=== PATIENT | male | born 1970 | race Two or more races ===

== ENCOUNTER 2025-03-20 05:20 | Day surgery (SDC) | payer OTHER ==
[2025-03-14 10:28] VITALS: BP 144/84
[2025-03-14 10:49] LABS: BASO % 1.5 % (0.1-1.2); EOS # 0.27 (0.04-0.54); EOS % 5.2 % (0.7-7.0); HEMOGLOBIN 14.4 g/dL (13.7-17.5); LYMPH # 1.47 (1.18-3.74); LYMPH % 28.3 % (19.3-53.1); MEAN CORPUSCULAR HEMOGLOBIN 30.8 pg (25.6-32.2); MONO # 0.53 (0.24-0.82); MONO % 10.2 % (4.7-12.5); NEUT # 2.83 (1.56-6.13); NEUT % 54.6 % (34.0-71.1); PLATELET COUNT 304 K/uL (163-369); RED BLOOD COUNT 4.68 M/uL (4.63-6.08); RED CELL DISTRIBUTION WIDTH 13.3 % (11.6-14.4)
[2025-03-14 11:00] LABS: PH,URINE 5.5 (5.0-8.0); URINE APPEARANCE Clear; URINE BILIRRUBIN Negative (NEGATIVE); URINE BLOOD Negative; URINE COLOR Yellow; URINE GLUCOSE Negative (NEGATIVE); URINE KETONE Negative (NEGATIVE); URINE LEUKOCYTE Negative; URINE NITRATE Negative; URINE PROTEIN Negative (NEGATIVE); URINE UROBILINOGEN 0.2 E.U./dl
[2025-03-14 11:11] LABS: URINE BACTERIA 1.2 uL (0.0-1933); URINE RBC 1.3 uL (0.0-20.8); URINE WBC 0.9 uL (0.0-23.2)
[2025-03-14 11:15] LABS: INR 1.05; PARTIAL THROMBOPLASTIN TIME 29.6 SECONDS (22.0-34.0); PROTHROMBIN TIME 11.4 SECONDS (9.0-11.5)
[2025-03-14 11:45] LABS: ALBUMIN 4.3 gm/dL (3.4-5.0); BILIRUBIN TOTAL 0.44 mg/dL (0.3-1.2); CREATININE SERUM 0.91 mg/dL (0.70-1.30); GFR 86.5; GLOBULINA 3.7 G/DL (2.4-3.5); POTASSIUM 4.64 mEq/L (3.5-5.1)
[~2025-03-20] VITALS: Ht 175.3 cm; Wt 86.2 kg
[2025-03-20] MEDS ORDERED: CEFAZOLIN SODIUM 1,000 MG VIAL ONE ×2 (06:59→07:03)
[2025-03-20] MEDS ORDERED: BUPIVACAINE HCL/MPF 0.5% 30ML VIAL ONE (07:30)
[2025-03-20] MEDS ORDERED: VANCOMYCIN HCL 1,000 MG VIAL ONE (07:31)
[2025-03-20] MEDS ORDERED: LIDOCAINE HCL 1%/EPINEPHRINE 20ML VIAL IJ ONE (07:31)
[2025-03-20] MEDS ORDERED: MORPHINE SULFATE 4 MG/ML VIAL IV ONE ×2 (10:25→11:05)
== END 2025-03-20 12:40 | disposition home or self-care (01) ==
LOC: CIR.AMB 05:20
PROVIDERS: ATTEND Orthopaedic Surgery
DX: M19.012 Primary osteoarthritis, left shoulder (principal); S43.112A Subluxation of left acromioclavicular joint, initial encounter
CPT/HCPCS: 23552; 23120; L8699